=== PATIENT | male | born 1985 | race Caucasian/White ===

== ENCOUNTER 2025-03-12 10:17 | Emergency (ER) | payer OTHER, SELFPAY ==
--- NOTE | 2025-03-12 11:31 | ED.GENMED ---
History of Present Illness
General
Chief Complaint: Cold/Flu/URI Symptoms
Time Seen by Provider: 03/12/25 11:05
History of Present Illness
History of Present Illness:
Male presents of general malaise, diffuse myalgias, and headaches ongoing for the past 10 days. He states initial 3 to 4 days of symptoms were accompanied by tactile fever with no objective fever. States that approximately 3 days ago he felt
improved before again worsening. Denies any rashes, chest pain, shortness of breath, nasal congestion, sore throat, coughing, nausea, vomiting, or diarrhea. His daughter did have a cold around the same time he developed illness symptoms but has
since improved. 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
Review of Systems
Review of Systems
Allergies reviewed?: Yes
All Other Systems: ROS reviewed and negative except as documented in HPI and ROS
Phy Exam
Physical Exam
Physical Exam:
GEN: Well appearing, NAD, WDWN
HEENT: Oral mucosa moist, no scleral icterus, no oropharyngeal erythema or exudates
Cardiac: Regular rate and rhythm, no murmurs
Lung: No respiratory distress, no tachypnea, lungs clear to auscultation bilaterally
MSK: No gross deformity or injuries
Skin: Good color, no pallor or jaundice, no rashes
Neuro: AO x3, moves all extremities freely
Psych: Calm, cooperative
Course
Orders/Labs/Results
Orders:
Orders
03/12/25 11:52
Anaplasma phagocytophila IgG/M [S] Urgent
Comment: ADD ON
Complete Blood Count/With Diff Urgent
Comprehensive Metabolic Panel Urgent
Ehrlichia chaffeensis Ab Panel [S] Urgent
Comment: ADD ON
Lyme Progressive Urgent
03/12/25 12:32
Add On - Microbiology Urgent
Tests Added?: babesia smear
Add On- LAB Urgent
Tests Added?: anaplasma phagocytophila IGG/M, ehrlichia chaffeensis AB panel
03/12/25 14:16
Babesia Smear [Blood Parasites] Urgent
[place] Source: Blood/Venous
Specimen Description:
Abnormal Lab Results
03/12/25
11:52
RBC 4.47 L 10^6/uL
(4.70-6.10)
Hct 38.1 L %
(39.0-52.0)
Plt Count 118 L 10^3/uL
(130-400)
MPV 11.0 H fL
(7.4-10.4)
Neutrophils % 40.1 L %
(42.2-75.2)
Lymphocytes % 51.2 H %
(20.5-51.1)
Sodium 134 L mmol/L
(135-145)
Total Bilirubin 1.4 H mg/dl
(0.2-1.3)
AST 63 H U/L
(17-59)
ALT 95 H U/L
(0-50)
03/12/25 11:52
03/12/25 11:52
Vital Signs
Initial and Last Documented VS:
Initial Vital Signs
Temp Pulse Resp Pulse Ox
98.7 F 99 16 98
03/12/25 10:19 03/12/25 10:19 03/12/25 10:19 03/12/25 10:19
Last Documented Vital Signs
Temp Pulse Resp BP Pulse Ox
98.7 F 81 18 112/74 97
03/12/25 10:19 03/12/25 12:24 03/12/25 12:24 03/12/25 12:24 03/12/25 12:24
MDM/Problems Addressed
MDM/Problems Addressed:
Patient's thrombocytopenia and transaminitis is suspicious for tickborne illness. Also considered mono however he did not have typical onset of pharyngitis and has not seen with mono. Will start the patient empirically on doxycycline and send
tickborne panel
*Pulse Oximetry
SaO2: 98
Oxygen Mode of Delivery: Room air
Patient hypoxic: no
*Critical Care Note
Total Time (30-74mins, 75-104mins- exclusive of procedures): Not Applicable
ED Attending Note
-
Portions of this chart may have been created with voice recognition software.� Occasional wrong word or��sound alike� substitutions may have occurred due to the inherent limitations of voice recognition software.
Discharge Plan
Departure
Patient Disposition: Home (Routine Discharge)
Date of Disposition: 03/12/25
Time of Disposition: 15:02
Patient with high blood pressure during this ER visit?: No
Discharge Problem:
Fever
Instructions: Fever, Adult (DC)
Prescriptions:
New
doxycycline monohydrate 100 mg capsule
100 mg PO BID 14 Days Qty: 28 0RF
Referrals:
NONE,* [Family Provider, Internal Medicine]
Activity Restrictions/Additional Instructions:
If you test for Lyme disease the appropriate treatment is 14 days of doxycycline. If you test positive for early ketosis or anaplasmosis the appropriate treatment 7 to 10 days. Please start the antibiotics promptly and we will contact you with
test results as they become available
Interventions
Interventions:
*Risk Screen - Suicide Last Done: 03/12/25 10:19
*Neglect/Abuse Screening Last Done: 03/12/25 10:19
*Nursing Disposition Last Done: 03/12/25 15:13
ED- Pulmonary Assessment Last Done: 03/12/25 12:03
Discharge Date and Time
Discharge Date/Time: 03/12/25 15:14
Print Language: LITHUANIAN
[2025-03-12 12:12] LABS: Hematocrit 38.1 % (39.0-52.0); Hemoglobin 13.6 g/dL (13.0-18.0); Mean Corp Hgb Conc. 35.7 g/dL (33.0-37.0); Mean Corpuscular Volume 85.2 fL (80.0-94.0); Platelet Count 118 10^3/uL (130-400); Red Cell Dist. Width 12.5 % (11.5-14.5)
[2025-03-12 12:17] LABS: ALT (SGPT) 95 U/L (0-50); AST (SGOT) 63 U/L (17-59); Albumin 4.0 g/dl (3.5-5.0); Alkaline Phosphatase 97 U/L (38-126); Blood Urea Nitrogen 16 mg/dl (9-20); Calcium 8.6 mg/dl (8.4-10.2); Carbon Dioxide 28 mmol/L (22-30); Chloride 102 mmol/L (98-107); Glucose 97 mg/dl (70-99); Potassium 4.3 mmol/L (3.5-5.1); Sodium 134 mmol/L (135-145); Total Protein 6.9 g/dl (6.3-8.2); eGFR > 60.00
[2025-03-12 12:24] VITALS: BP 112/74
[2025-03-12 13:03] LABS: Nucleated Red Blood Cells % 0 % (-)
[2025-03-12 15:10] LABS: Lyme Antibody Screen, EIA Negative (Negative)
== END 2025-03-12 15:14 | disposition home or self-care (01) ==
LOC: EMR 10:17
PROVIDERS: Physician Assistant; EMERGENCY PHYSICIAN Emergency Medicine
DX: R50.9 Fever, unspecified (principal); D69.6 Thrombocytopenia, unspecified; M79.10 Myalgia, unspecified site
CPT/HCPCS: 99283; 80053; 85025; 86618; 86666; 87015; 87207